=== PATIENT | female | born 1995 | race Caucasian/White ===

== ENCOUNTER → 2018-09-19 16:36 | Outpatient (CLI) | payer OTHER, SELFPAY ==
[2018-09-30 16:05] LABS: HPV Reflexed? NOT INDICATED
== END ==
PROVIDERS: Visit Provider Obstetrics & Gynecology
DX: Z12.4 Encounter for screening for malignant neoplasm of cervix (principal)
CPT/HCPCS: 87624; 88175; G0145

== ENCOUNTER 2023-12-31 11:30 | Inpatient (IN) | payer OTHER, SELFPAY ==
[2023-12-31] VITALS (44 sets, daily range): BP systolic 105–135; BP diastolic 64–93; PULSE 73–105; RESP 14–16; TEMP 36.6–37.4; O2SAT 94–99; BMI 26.4
--- NOTE | 2023-12-31 11:36 | PCM.HP.OB ---
HPI - General General Date of Admission: 12/31/23 Date of Service: 12/31/23 Chief Complaint: bleeding and contractions HPI Narrative JETHRO HILL, is a 28 F who presents with bleeding. Reports contractions every 5 minutes and vaginal bleeding. No LOF. Good FM. PFSH PFSH Allergy/AdvReac Type Severity Reaction Status Date / Time No Known Allergies Allergy Verified 12/31/23 11:34 NST FHR Rate Baby A Baseline: Patient just arrived and not yet on monitor Vital Signs Vital Signs Vital Signs: Weight Weight: 159 lb Body Mass Index (BMI) 26.4 Physical Exam Const alert and no apparent distress General Appearance: comfortable HEENT normocephalic Resp normal respiratory effort GI soft to palpation, non-tender and non-distended Narrative: Cvx 3-4 cm per RN Labs Labs Labs: No Data to Display Assessment & Plan (1) 40 weeks gestation of : PLAN: Discussed r/b/a IOL with patient given 40+ weeks and bleeding. Patient desires to proceed with an induction of labor. Start Pitocin per protocol. Plans epidural. EFW < 4500 grams and pelvis adequate. GBS negative. (2) Multiparous: (3) Vaginal bleeding: PLAN: Pt called into office with bleeding. No bleeding on admission (4) Uterine contractions: PLAN: Ctx's q 5 min
[2023-12-31] MEDS: Lactated Ringers 1,000 ML 999 ML IV (11:45)
[2023-12-31 12:10] LABS: Absolute Lymphocyte Count 1.58 X10^3/uL (0.83-4.51); Absolute Neutrophil Count 6.9 X10^3/uL (2.0-7.7); Basophil# 0.03 X10^3/uL; Basophil% 0.3 % (0-1); Eosinophil# 0.06 X10^3/uL; Eosinophils% 0.7 % (0-5); Hematocrit 35.3 % (37-47); Hemoglobin 11.3 g/dL (12.0-15.0); Lymphocyte # 1.58 X10^3/ul (0.83-4.51); Lymphocyte % 17.2 % (19-41); Mean Corpuscular Hgb 25.9 pg (27.0-32.0); Mean Platelet Vol. 9.8 fl (6.2-12.0); Monocyte# 0.58 X10^3/uL; Monocyte% 6.3 % (0-10); NRBC Flagged by Analyzer 0 % (0-5); Neutrophil # 6.91 X10^3/uL (2.7-7.7); Neutrophil % 75.2 % (47-70); Platelet Count 175 K/mm3 (150-450); RBC Distribution Width CV 13.3 % (11.6-14.6); RBC Distribution Width SD 39.1 fl (35.1-43.9); Red Blood Count 4.36 M/mm3 (4.2-5.4); White Blood Count 9.2 K/mm3 (4.4-11.0)
[2023-12-31 13:03] LABS: Syphilis Antibodies Non-reactive
[2023-12-31] MEDS: Lactated Ringers 1,000 ML 200 ML IV ×2 (13:24→18:28)
[2023-12-31] MEDS: Oxytocin 15 Units/NS 250ml 15 UNITS/250 ML IV.SOLN 2 UNITS IV (13:42)
[2023-12-31] MEDS: fentaNYL-bupivacaine (epidural) 100 ML BAG EPIDURAL ×2 (14:50→18:52)
--- NOTE | 2023-12-31 19:34 | OP.PCM_ITS ---
Problems Associated Problem List Diagnoses (1) Vaginal delivery: (2) Second degree perineal laceration: Report of Operation Date of Procedure: 12/31/23 Pre-Operative Diagnosis: 40 week gestation, vaginal bleeding/spotting, contractions, induction of labor Post-Operative Diagnosis: As above, vaginal delivery Surgery/Procedure Performed:: Repair of second degree perineal laceration Description of Surgical Findings:: Vigorous VFI with Apgars 8, 9. Normal appearing placenta with 3 VC. Surgeon: Liudmila Hernandez ground crew lines person: None Type of Anesthesia: Epidural Special Medications: None Specimen's removed: Placenta Drains: Nolen Estimated Blood Loss (mL): 150 Fluids Replaced: N/A Description of Procedure: Patient prepped for delivery once 10/0 and began pushing with contractions. The head of the infant delivered in FILIBERTO position, followed by the shoulders and body spontaneously without any traction, force or delay. A vigorous VFI was placed on maternal abdomen. Apgars 8, 9. The cord was clamped and cut after a 60 second delay by the FOB. Pitocin was initiated. The placenta delivered spontaneously and was noted to be normal appearing and intact with a 3 VC. Fundus firm and bleeding hemostatic. 3-0 Vicryl was used to repair a second degree perineal laceration in usual fashion. A vaginal sweep was performed. Sponge counts were correct. Grafts/Implants Used: None Complications None Admit VTE Documentation VTE Present on Admission: No
[2023-12-31] MEDS: Oxytocin 15 Units/NS 250ml 15 UNITS/250 ML IV.SOLN 83 UNITS IV (19:50)
[2024-01-01] VITALS (10 sets, daily range): BP systolic 119–126; BP diastolic 59–79; PULSE 68–100; RESP 14–18; TEMP 36.2–36.8; O2SAT 96–99
[2024-01-01] MEDS: Ibuprofen 600 MG Tablet PO ×3 (00:55→20:21)
--- NOTE | 2024-01-01 08:02 | PCM.PN.OB ---
Subjective Subjective She is doing well. She offers no complaints. She desires discharge home tomorrow. She is ambulating and voiding without difficulty. Tolerating a diet without nausea or vomiting. She is breast-feeding. Lochia is normal. Objective Data Objective Data Vital Signs: Vital Signs Temp Pulse Resp BP Pulse Ox O2 Del Method 97.9 F 97 16 124/73 H 97 Room Air 01/01/24 03:00 01/01/24 07:57 01/01/24 03:00 01/01/24 07:57 01/01/24 07:57 01/01/24 03:00 Oxygen Delivery Method Room Air Weight: 159 lb Body Mass Index (BMI) 26.4 Intake & Output: Intake and Output for Last 24 Hours 12/30/23 12/31/23 01/01/24 23:59 23:59 23:59 Intake Total 2619.83 / 2619.83 Output Total 1150 / 1150 1700 / 1700 Balance 1469.83 / 1469.83 -1700 / -1700 Lab / Micro Data 12/31/23 11:45 Labs: Laboratory Results - last 24 hr 12/31/23 11:45: WBC 9.2, RBC 4.36, Hgb 11.3 L, Hct 35.3 L, MCV 81.0, MCH 25.9 L, MCHC 32.0, RDW Std Deviation 39.1, RDW Coeff of Karen 13.3, Plt Count 175, MPV 9.8, Immature Gran % (Auto) 0.300, Neut % (Auto) 75.2 H, Lymph % (Auto) 17.2 L, [place] % (Auto) 6.3, Eos % (Auto) 0.7, Baso % (Auto) 0.3, Absolute Neuts (auto) 6.9, Absolute Lymphs (auto) 1.58, Nucleated RBC % 0, Syphilis Total Ab Non-reactive, Blood Type O POSITIVE, Antibody Screen NEGATIVE Physical Exam Const alert and no apparent distress General Appearance: comfortable Assessment & Plan (1) Second degree perineal laceration: (2) Vaginal delivery: PLAN: PPD#1 s/p . Doing well. Routine care and anticipate discharge tomorrow.
[2024-01-01] MEDS: Benzocaine/Lanolin/Aloe Vera 85 GM Spray 1 SPRAY TOPICAL (08:15)
[2024-01-01] MEDS: Senna/Docusate Sodium 1 Tablet PO (13:17)
[2024-01-02 01:45] VITALS: BP 108/68; PULSE 70; PULSE 74; RESP 18; TEMP 36.1; O2SAT 95
[2024-01-02 07:58] VITALS: BP 117/74; PULSE 79
[2024-01-02 07:59] VITALS: TEMP 36.3
[2024-01-02 08:00] VITALS: BP 117/74; PULSE 81; RESP 16; TEMP 36.3; O2SAT 97
[2024-01-02] MEDS: Ibuprofen 600 MG Tablet PO (08:13)
--- NOTE | 2024-01-02 08:36 | PCM.PN.OB ---
Subjective Subjective Pt is doing well. No pain. ambulating and voiding without difficulty. Lochia normal and without complaints. Denies cp, sob, leg pain. Desires discharge today. Objective Data Objective Data Vital Signs: Vital Signs Temp Pulse Resp BP Pulse Ox O2 Del Method 97.3 F L 79 18 117/74 95 Room Air 01/02/24 07:59 01/02/24 07:58 01/02/24 01:45 01/02/24 07:58 01/02/24 01:45 01/02/24 01:45 Oxygen Delivery Method Room Air Weight: 159 lb Body Mass Index (BMI) 26.4 Intake & Output: Intake and Output for Last 24 Hours 12/31/23 01/01/24 01/02/24 23:59 23:59 23:59 Intake Total 2619.83 / 2619.83 Output Total 1150 / 1150 1700 / 1700 Balance 1469.83 / 1469.83 -1700 / -1700 Lab / Micro Data 12/31/23 11:45 Physical Exam Const alert and no apparent distress Constitutional Narrative: Resting General Appearance: comfortable Assessment & Plan (1) Second degree perineal laceration: (2) Vaginal delivery: PLAN: PPD#2 s/p . Doing well . Desires discharge today. Discharge instructions reviewed.
--- NOTE | 2024-01-02 08:38 | DCINST_ITS ---
Discharge Instructions Diet Discharge Diet: No restrictions Activity Discharge Activity: May Drive and May Shower May resume sexual activity in: 6 weeks Ice area for (Minutes): 15 Weight Bearing Status: Weight bearing as tolerated Lifting Restrictions: nothing heavier than baby Dressing / Incision Call your doctor if you observe: Fever of 101 or Higher, Inability to urinate, Using more than 1 pad per hour, Shortness of breath, Dizziness, Fainting spells, Swelling in the ankles, Increased palpitations (irregular heartbeat), Calf discomfort and Uncontrolled pain Cleanse incision/area with: Soap & Water Follow Up Care Please Follow Up With: Liudmila Hernandez DO When: 6 week Test Results: Test results from this visit will be discussed in further detail at your follow- up appointment, if applicable. Discharge Plan Admission Admit Date/Time: 12/31/23 11:30 Primary Reason for Your Visit: delivery Attending Provider: Liudmila Hernandez Primary Care Provider: Care Physician,Hilda Primary Instructions Patient Instructions: After a Vaginal Discharge Orders/Prescriptions Prescriptions: New acetaminophen [Tylenol] 325 mg capsule 650 mg PO Q6H PRN (Reason: pain) Qty: 30 0RF ibuprofen 600 mg tablet 600 mg PO Q6H PRN (Reason: pain) Qty: 30 0RF Referrals / Follow Up: Care Physician,No Primary [Primary Care Provider] - Disposition Disposition (needs filled in before D/C Order can be placed): Home, Self Care
--- NOTE | 2024-01-02 09:39 | PCM.DC.SUM ---
Providers Date of Admission: 12/31/23 Date of Discharge: 01/02/24 Primary Care Physician: Hilda Primary Care Phys Reason For Visit: VAGINAL DELIVERY Diagnosis Discharge Diagnosis (1) Second degree perineal laceration: Status: Acute Code(s): O70.1 - Second degree perineal laceration during delivery (2) Vaginal delivery: Status: Acute Code(s): O80 - Encounter for full-term uncomplicated delivery Plan: PPD#2 s/p . Doing well . Desires discharge today. Discharge instructions reviewed. Medications at Discharge Home Medications acetaminophen 325 mg capsule (Tylenol) 650 mg (2 x 325 mg) PO Q6H PRN pain #30 caps 01/02/24 ibuprofen 600 mg tablet 600 mg PO Q6H PRN pain #30 tabs 01/02/24 Hospital Course Operations None Procedures - (vaginal delivery and repair of second degree perineal laceration) Summary of Care Provided Minutes Spent on Discharge: 10 Hospital Course: Patient was admitted for induction of labor at 40+ week gestation given spotting and contractions. She had an uncomplicated vaginal delivery. See operative report for details. She was discharged home in good condition on day 2. Weight / BMI Weight Weight: 159 lb Body Mass Index (BMI) 26.4 ABG / Lab / Microbiology Data 12/31/23 11:45 D/C Instructions Discharge Diet: No restrictions May resume sexual activity in: 6 weeks Ice area for (Minutes): 15 Weight Bearing Status: Weight bearing as tolerated Call your doctor if you observe: Fever of 101 or Higher, Inability to urinate, Using more than 1 pad per hour, Shortness of breath, Dizziness, Fainting spells, Swelling in the ankles, Increased palpitations (irregular heartbeat), Calf discomfort and Uncontrolled pain Cleanse incision/area with: Soap & Water Please Follow Up With: Liudmila Hernandez DO When: 6 week Meaningful Use Info Meaningful Use Meaningful Use Diagnoses (Choose all that apply): None applicable Ischemic Stroke Statin Dosing Therapy Reference: STATIN DOSE THERAPY REFERENCE: * Patients > 75 years receive moderate or high dose statin therapy. * Patients 75 years or YOUNGER should receive HIGH intensity statin dose unless contraindicated. You will be required to document reason for non-treatment if statin daily dose does not meet guidelines. HIGH DOSE STATIN THERAPY DAILY Atorvastatin > than or = to 40 mg Rosuvastatin > than or = to 20 mg Amlodipine + Atorvastatin > than or = to 2.5/40 mg Ezetimibe + Simvastatin 10/80 mg Simvastatin 80mg Discharge Plan Admission Admit Date/Time: 12/31/23 11:30 Primary Reason for Your Visit: delivery Attending Provider: Liudmila Hernandez Primary Care Provider: Care Physician,No Primary Instructions Patient Instructions: After a Vaginal Discharge Orders/Prescriptions Prescriptions: New acetaminophen [Tylenol] 325 mg capsule 650 mg PO Q6H PRN (Reason: pain) Qty: 30 0RF ibuprofen 600 mg tablet 600 mg PO Q6H PRN (Reason: pain) Qty: 30 0RF Referrals / Follow Up: Care Physician,No Primary [Primary Care Provider] - Disposition Disposition (needs filled in before D/C Order can be placed): Home, Self Care
== END 2024-01-02 09:20 | disposition home or self-care (01) | DRG 807 ==
LOC: WPOUT 11:31 → WP 11:31
PROVIDERS: Admitting Provider Obstetrics & Gynecology; Referring Provider Obstetrics & Gynecology; Visit Provider Obstetrics & Gynecology
DX: O47.1 False labor at or after 37 completed weeks of gestation (principal); Z37.0 Single live birth; O26.853 Spotting complicating pregnancy, third trimester; O70.1 Second degree perineal laceration during delivery; Z3A.40 40 weeks gestation of pregnancy; Z64.1 Problems related to multiparity
CPT/HCPCS: 59025; 59050; 85025; 86780; 86850; 86900; 86901; 99221; J7120; G0378